=== PATIENT | male | born 1960 | race Two or more races ===

== ENCOUNTER 2018-10-29 14:50 | Emergency (ER) | payer OTHER ==
[~2018-10-29] VITALS: Ht 180.3 cm; Wt 167.8 kg
[2018-10-29 16:08] VITALS: BP 176/73
[2018-10-29] MEDS: KETOROLAC TROMETH 60MG/2ML VIAL IM ONE (17:21)
[2018-10-29] MEDS: HYDROcodone-ACET 10/325MG TAB PO ONE (17:21)
== END 2018-10-29 18:15 | disposition home or self-care (01) ==
LOC: ER 14:50
DX: M25.561 Pain in right knee (principal); E11.9 Type 2 diabetes mellitus without complications; E78.5 Hyperlipidemia, unspecified; I10 Essential (primary) hypertension; F12.90 Cannabis use, unspecified, uncomplicated
CPT/HCPCS: 73700; 96372; 99284; J1885